=== PATIENT | female | born 1955 | race Asian ===

== ENCOUNTER 2024-12-22 15:06 | Outpatient (AMB) | payer MEDICARE, SELFPAY ==
--- OUTSIDE RECORDS SUMMARY | 2024-12-19 10:15 | XMS_ITS | Encounter Summary ---
Author Organization [facility] Address [address] [place] [address] Care Team Providers Care Pit Furnace Melter Name Role Phone Jose Eduardo Telles MD Primary Care Provider [phone] Reason for Referral * Imaging (Routine) - Authorized Specialty Diagnoses / Procedures Referred By Contac t Referred To Contact Radiology Diagnoses History of invasive breast cancer Age-related osteoporosis without current pathological fracture Procedures BD Bone Density DXA Axial Skeleton Zara Swanson MD [address] [place] [address] Phone: tel: fax: [facility] Referral ID Status Reason Start Date Expiration Date V isits Requested Visits Authorized [id number] Authorized 12/19/2024 12/19/2025 1 1 Reason for Visit * Reason Comments Follow-up Encounter Details Date Type Department Care Team (Late st Contact Info) Description 12/19/2024 10:15 AM EDT Office Visit [facility] Hematology Oncology [address] [place] [phone] Zara Swanson MD [address] [place] [address] History of invasive breast cancer (Primary Dx); Age-related osteoporosis without current pathological fracture Social History Tobacco Use Types Packs/Day Years Used Date Smoking Tobacco: Never Smokeless Tobacco: Never Alcohol Use Standard Drinks/Week Comments Not Currently 0 (1 standard drink = 0.6 oz pur e alcohol) Comments Unknown Sex and Gender Information Value Date Recorded Sex Assigned at Not on file Legal Sex Female 10:47 AM EST Gender Identity Not on file Sexual Orientation Not on file documented as of this encounter Last Filed Vital Signs Vital Sign Reading Time Taken Comments Blood Pressure 111/64 12/19/2024 10:26 AM EDT Pulse 61 12/19/2024 10:26 AM EDT Temperature 36.6 C (97.9 F) 12/19/2024 10:26 AM EDT Respiratory Rate - - Oxygen Saturation 100% 12/19/2024 10:26 AM EDT Inhaled Oxygen Concentration - - Weight 66.7 kg (147 lb) 12/19/2024 10:26 AM EDT Height - - Body Mass Index 23.73 10/04/2024 2:58 PM EDT documented in this encounter Progress Notes * Zara Swanson MD - 12/19/2024 10:15 AM EDT ONC CANCER FOLLOW UP CHIEF COMPLAINT: Follow-up IDENTIFIER:Yobany Morrow is a 69 y.o. female. HPI: 69-year-old woman, who diagnosed in 2021 with grade 2 invasive ductal carcinoma of right breast, patient had T1c N0 hormone receptor positive disease, patient after lumpectomy had adjuvant radiation then started on anastrozole, patient baseline bone density consistent with osteoporosis, patient apparently has been taking vitamin D as well as calcium ROS: No significant anorexia or weight loss Patient noticed some fatigue lately Patient noticed pelvic joint pain and sometimes stiffness of the hand Patient denies any chest pain chest pressure or shortness of breath Patient denies any significant GI symptoms PAST MEDICAL HISTORY: Patient Active Problem List Diagnosis Hyperlipidemia Chest heaviness Retraction of skin of breast Breast pain 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 Rinaldi, cardiology at [facility], try occasion beta marielena History of lumpectomy 10/08/2014 DX:History of lumpectomy; COMMENT: Left/ fibroid per transfer note/ no final path report seen in records Lipoma 11/13/2015 DX:Lipoma; COMMENT: Right knee, right ankle Microscopic hematuria 10/04/2014 DX:Microscopic hematuria; COMMENT: Negative cystoscopy 11/07 Dr Cruz Multinodular goiter 10/04/2014 DX:Multinodular goiter UTI (lower urinary tract infection) 11/06/2014 DX:UTI (lower urinary tract infection); COMMENT: Pyelonephritis, multiresistant organism SOCIAL HISTORY: Social History Tobacco Use Smoking status: Never Smokeless tobacco: Never Substance Use Topics Alcohol use: Not Currently FAMILY HISTORY: Family History Problem Relation Name Age of Onset Lung cancer Maternal Grandmother smoker, dignosed and at age 64 Prostate cancer Paternal Grandfather Other (Other: FUO for 20 years) Father Other (Other: esophageal Ca at age 75) Maternal Grandfather Lung cancer Uncle non smoker, mathernal, at age 69 Family Status Relation Name Status MGM (Not Specified) PGF (Not Specified) Father (Not Specified) MGF (Not Specified) Uncle (Not Specified) No partnership data on file Current Outpatient Medications: anastrozole (ARIMIDEX) 1 mg, TAKE 1 TABLET BY MOUTH EVERY DAY, Disp: 90 tablet, Rfl: 3 calcium carbonate-cholecalciferol 500 mg-10 mcg (400 unit) per chewable tablet, Chew 1 tablet 1 (one) time each day., Disp: , Rfl: ezetimibe (ZETIA) 10 mg tablet, Take 1 tablet (10 mg total) by mouth 1 (one) time each day., Disp: 30 each, Rfl: 11 multivitamin tablet, Take 1 tablet by mouth 1 (one) time each day., Disp: , Rfl: Allergies Allergen Reactions Latex Penicillins Reaction not mentioned PHYSICAL EXAM: Visit Vitals BP 111/64 (BP Location: Left arm, Patient Position: Sitting, BP Cuff Size: Adult) Pulse 61 Temp 36.6 ??C (97.9 ??F) (Temporal) Wt 66.7 kg (147 lb) SpO2 100% BMI 23.73 kg/m?? Smoking Status Never BSA 1.75 m?? ECOG 0 APPEARANCE: Alert and in no acute distress EYES: nonicteric sclera pink conjunctiva ORAL CAVITY: No erythema or exudates NECK: Neck supple, no significant adenopathy, HEART: normal S1 and S2 LUNG: clear to auscultation bilaterally LYMPH NODES: No palpable superficial adenopathy ABDOMEN: soft, nontender and no organomegaly appreciated EXTREMITIES: No edema erythema or tenderness IMPRESSION: 1. History of invasive breast cancer 2. Osteoporosis 69-year-old woman, who had T1c N0 hormone positive invasive carcinoma of right breast, patient had lumpectomy followed by adjuvant radiation then started on anastrozole because of Oncotype DX testing showed low recurrence score, patient has been on anastrozole, tolerating well but baseline bone density showed osteoporosis, I told patient I will repeat bone density next month and see her back in few months, if there is worsening of bone density we will /should consider switching her from aromatase inhibitor, explained patient in detail about potential risk benefit of aromatase inhibitor PLAN: Continue anastrozole for now Bone density next month I will see her back in few months Zara Swanson MD documented in this encounter Plan of Treatment Upcoming Encounters Date Type Department Care Team (Late st Contact Info) Description 01/19/2025 9:30 AM EDT Appointment [facility] Bone Density [address] [place] [phone] 02/06/2025 2:30 PM EST Office Visit [facility] [address] [facility] [address] [place] [address] José Antonio Morrow MD [address] [place] [address] [place] [address] 03/07/2025 11:00 AM EST Office Visit Adult Medicine [address] [phone] Jose Eduardo Telles MD [address] [place] [phone] 04/04/2025 1:30 PM EST Office Visit [facility] [address] [place] [phone] Macy Akers MD [address] [place] [phone] 05/21/2025 11:00 AM EST Office Visit [facility] Hematology Oncology [address] [place] [address] Zara Swanson MD [address] [place] [address] Scheduled Orders Name Type Priority Associated Diagnoses Orde r Schedule BD Bone Density DXA Axial Skeleton Imaging Routine History of invasive breast cancer Age-related osteoporosis without current pathological fracture Expected: 01/18/2025, Expires: 12/19/2025 documented as of this encounter Visit Diagnoses Diagnosis History of invasive breast cancer- Primary Age-related osteoporosis without current pathological fracture documented in this encounter Discontinued Medications Medication Sig Discontinue Reason Start Date End Da te alendronate (FOSAMAX) 70 mg tablet TAKE 1 TABLET (70 MG TOTAL) BY MOUTH EVERY 7 DAYS. TAKE WITH WATER ON EMPTY STOMACH/NOTHING BY MOUTH AND DO NOT LIE DOWN FOR NEXT 30 MINUTES 02/22/2024 12/19/2024 documented as of this encounter Additional Health Concerns Assessment Noted Time PHQ-9 Depression Total Score: 0 08/11/19 25 8:25 AM EDT documented as of this encounter Care Teams Pit Furnace Melter Relationship Specialty Start Date End Date Jose Eduardo Telles MD [address] [place] [id number] PCP - General Internal Medicine 07/04/14 documented as of this encounter
--- NOTE | 2024-12-22 15:16 | HO.NEPHOV ---
Vital Signs 12/22/24 15:20 Height 5 ft 5 in Weight 147 lb 2 oz BMI 24.5 BP 90/50 L Blood Pressure Location Lt brachial Position Sitting Pulse 73 Pulse Source Pulse Oximeter Pulse Oximetry (%) 97 Oxygen Delivery Method Room Air Intake Visit Reasons: Self Referral-Conf Grades 9 12 Tutor Required: No Accompanied by: Spouse Allergies latex Allergy (Verified 12/20/24 14:36) Unknown Penicillins Allergy (Verified 12/20/24 14:36) Unknown HPI Comments Details: I had the privilege of seeing Mrs Morrow in consultation for edema. She is 69 years of age and has been in good health but has been having edema for a few years intermittently. She has no CAD and has no H/O CHF. She is not known to have valvular disease, liver disease, renal dysfunction, proteinuria. She has H/O breast cancer and has been on anastrazole. She claims that her edema predates breast cancer. She denies excess sodium in the diet. She denies chest pain , SOB, PND, orthopnea, abdominal distension or increase in abdominal girth. She denies taking excess NSAID's. 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 Breast pain Retraction of skin of breast Surgical History (Updated 12/22/24 @ 15:18 by Brooke Monteiro MA) History of appendectomy H/O breast surgery Family History (Updated 12/22/24 @ 15:17 by Brooke Monteiro MA) Mother Stroke Social History (Updated 12/22/24 @ 15:17 by Brooke Monteiro MA) Alcohol intake: never Patient Tobacco Use Status: Never used Tobacco Review of Systems Const All systems reviewed & are unremarkable except as noted in HPI and below Physical Exam Vital Signs: Last Vital Signs Pulse 73 12/22/24 15:20 BP 90/50 L 12/22/24 15:20 Pulse Ox 97 12/22/24 15:20 Oxygen Delivery Method Room Air 12/22/24 15:20 BMI result Body Mass Index 24.5 Const General: comfortable and no acute distress Orientation/consciousness: patient oriented x3 HEENT Head: Yes normocephalic Mouth: Normal oral and palatal mucosa present Eyes EOM: EOMs intact bilaterally Neck Neck: Yes supple Resp Auscultation: clear to auscultation bilaterally Cardio Jugular venous distension: no JVD Rate: regular rate GI Palpation (GI): Soft to palpation Auscultation: normal bowel sounds General: Yes no CVA tenderness Back/Spine/Pelvis Back: no CVA tenderness Skin General skin exam: no rashes or lesions noted Neuro General: patient oriented x3 and moves all extremities Extrem Other: B/L varicose vein Assessment & Plan Assessment & Plan (1) Edema: Code(s): R60.9 - Edema, unspecified Category: Medical Qualifiers: Edema type: localized Qualified Code(s): R60.0 - Localized edema Plan Probably due to varicose vein while taking anastrazole. She has no H/O HF, liver disease, renal disease or proteinuria. I have ordered blood work including Pro BNP and urine studies. She may need ECHO. I encouraged her to keep low sodium diet and wear FIDELIA stockings. If all work up is negative, she needs to see surgeon for taking care of her varicose veins. There is no indication for any diuretics now. All the possibilites have been discussed with her and her . All questions were answered and F/U was given. Further management is pending evolving data Orders: Orders NT Pro B Type Natriuretic Pept Today R60.9 - Edema, unspecified Alanine Aminotransferase Today R60.9 - Edema, unspecified Aspartate Amino Transferase Today R60.9 - Edema, unspecified Creatinine Today R60.9 - Edema, unspecified Electrolytes Today R60.9 - Edema, unspecified Albumin Level Today R60.9 - Edema, unspecified Protein Creatinine Ratio, Ur Today R60.9 - Edema, unspecified Blood Urea Nitrogen Today R60.9 - Edema, unspecified Coding Level of Care Code New Pt Level 4 (31205) Diagnoses Localized edema R60.0 Edema type: localized
[2024-12-22 15:20] VITALS: BP 90/50; PULSE 73; O2SAT 97; BMI 24.5
--- OUTSIDE RECORDS SUMMARY | 2024-12-22 15:42 | XMS_ITS | Clinical Summary ---
Author Organization [facility] Address [address] [id number] Care Team Providers Care Vacuum Cleaner Assembler Name Role Phone Jose Eduardo Telles MD Primary Care Provider [phone] Medications Medication Sig Dispensed Refills Start Date End Date Status pravastatin (PRAVACHOL) tablet 20 mg Take 1 tablet (20 mg total) by mouth daily. 0 Active alendronate (FOSAMAX) tablet 70 mg Take 1 tablet (70 mg total) by mouth every 7 days. Take with water on empty stomach/Nothing by mouth and do not lie down for next 30 minutes 4 tablet 12 01/11/2023 Active anastrozole (ARIMIDEX) 1 MG tablet TAKE 1 TABLET BY MOUTH EVERY DAY 90 tablet 3 04/12/2023 Active exemestane (AROMASIN) 25 MG tabletIndications:Inv asive ductal carcinoma of right breast (HCC) Take 1 tablet (25 mg total) by mouth daily 90 tablet 2 08/20/2023 Active Active Problems No known active problems Social History Tobacco Use Types Packs/Day Years Used Date Smoking Tobacco: Never Smokeless Tobacco: Never Tobacco Cessation:Counseling Given: Not Answered Alcohol Use Standard Drinks/Week Comments Never 0 (1 standard drink = 0.6 oz pur e alcohol) Sex and Gender Information Value Date Recorded Sex Assigned at Not on file Gender Identity Not on file Sexual Orientation Not on file Job Start Date Occupation Industry Not on file Not on file Not on file Last Filed Vital Signs Vital Sign Reading Time Taken Comments Blood Pressure 147/84 08/09/2023 9:25 AM EDT Pulse 80 08/09/2023 9:25 AM EDT Temperature 36.6 C (97.8 F) 08/09/2023 9:25 AM EDT Respiratory Rate - - Oxygen Saturation 100% 08/09/2023 9:25 AM EDT Inhaled Oxygen Concentration - - Weight 62.6 kg (138 lb) 08/09/2023 9:25 AM EDT Height 165.1 cm (5' 5 ) 08/09/2023 9:25 AM EDT Body Mass Index 22.96 08/09/2023 9:25 AM EDT Plan of Treatment Health Maintenance Due Date Last Done Comments Hepatitis C Screening 1954 Depression Screening 1966 Preventative Health Evaluation 1972 Colon Cancer Screening (Colonoscopy) 1999 Breast Cancer Screening (Mammogram) 2004 Fall Risk Assessment 2019 Osteoporosis Screening (DEXA Scan) 2019 Shingrix-Zoster Vaccine (2 of 2) 02/10/2023 12/16/2022 COVID-19 Vaccine ( season) 2024 03/31/2022, 08/13/2021, 01/15/2021, Additional history exists Influenza Vaccine (#1) 2024 , 01/25/2020, 01/01/2017 DTap / Tdap / Td (2 - Td or Tdap) 11/12/2025 11/13/2015 RSV Adult > 60+ Yrs or (1 - 1-dose 75+ series) 2029 Pneumococcal Vaccine Completed 05/27/2022 Hepatitis B Vaccines Aged Out No long er eligible based on patient's age to complete this topic RSV Ped < 20 months Aged Out No longe r eligible based on patient's age to complete this topic Care Teams Vacuum Cleaner Assembler Relationship Specialty Start Date End Date Jose Eduardo Telles MD PCP - General Internal Medicine 03/24/22
--- OUTSIDE RECORDS SUMMARY | 2024-12-22 15:42 | XMS_ITS ---
Author Name [facility] Organization Unknown Care Team Organization Name Specialty Phone Email Start Date End Da te [facility] 11/15/2024 [facility] 02/03/2022 11/15/2023
--- OUTSIDE RECORDS SUMMARY | 2024-12-22 15:42 | XMS_ITS | Clinical Summary ---
Author Organization [facility] Address [address] [place] [address] Phone Care Team Providers Care Welfare Manager Name Role Phone Jose Eduardo Telles MD Primary Care Provider [phone] Allergies Active Allergy Reactions Criticality Noted Date Comments Latex 03/18/2022 Penicillins 10/04/2014 Reaction not mentioned Medications calcium carbonate-chol ecalciferol 500 mg-10 mcg (400 unit) per chewable tablet Chew 1 tablet 1 (one) time each day. Active anastrozole (ARIMIDEX) 1 mg TAKE 1 TABLET BY MOUTH EVERY DAY 90 tablet 3 04/12/19 25 Active multivitamin tablet Take 1 tablet by mouth 1 (one) time each day. Active ezetimibe (ZETIA) 10 mg tablet Take 1 tablet (10 mg total) by mouth 1 (one) time each day. 30 each 12/02/19 25 026 Active alendronate (FOSAMAX) 70 mg tablet TAKE 1 TABLET (70 MG TOTAL) BY MOUTH EVERY 7 DAYS. TAKE WITH WATER ON EMPTY STOMACH/NOT LYNN BY MOUTH AND DO NOT LIE DOWN FOR NEXT 30 MINUTES 12 tablet 4 02/22/20 24 025 Discontinued ezetimibe (ZETIA) 10 mg tablet Take 1 tablet (10 mg total) by mouth 1 (one) time each day. 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 Will repeat lipid profile in a few months to make sure the treatment effect sustains. Will check AST and ALT at same time. Orders: Lipid panel with reflex to direct LDL; Future Hepatic function panel; Future Assessment & Plan (04/04/2024 12:37 PM EST): Could not tolerate statins unfortunately due to elevated liver enzyme. Has started Zetia and will repeat liver function and lipid profile in a month. We had a discussion about PCSK9 inhibitor and she is more open about it. Chest heaviness 04/04/2024 Assessment & Plan (06/23/2024 12:26 PM EDT): She had nonobstructive CAD and stress echo was reassuring. Assessment & Plan (04/04/2024 12:43 PM EST): Coronary artery CTA in August 2022 revealed 40% of LAD plaque. Her symptoms are probably stress related. Will schedule a stress echo to assess wall motion and also diastolic parameter post exercise. Will assess mitral inflow and PA systolic pressure before and after exercise with stress echo. CAD (coronary artery disease) 09/24/2023 Overview (08/10/2024): Last Assessment & Plan: With nonobstructive lesions in LAD. We did talk about possible PCSK9 inhibitor and will have a further discussion. Allergic rhinitis 08/20/2023 Bilateral tinnitus 08/20/2023 Sensorineural hearing loss (SNHL) of both ears 0 08/20/2023 Abnormal liver function test 01/01/2022 Osteopenia 01/01/2022 Epigastric pain 11/12/2021 Overview (08/10/2024): Last Assessment & Plan: There is no evidence of hemodynamic significant coronary artery disease. We will continue primary prevention. Fatty liver 11/12/2021 Gastric intestinal metaplasia 11/12/2021 Overview (08/10/2024): EGD every 3 yrs next one due in 2023 Frequent PVCs 11/13/2015 Overview (08/10/2024): Rikki on report, follows with Dr. Rinaldi, cardiology at [facility], try occasion beta marielena Lipoma 11/13/2015 Overview (08/10/2024): Right knee, right ankle, right flank (largest) Lower urinary tract infectious disease 5 Overview (08/10/2024): Pyelonephritis, multiresistant organism IMO update Anemia 10/04/2014 Overview (08/10/2024): GB electrophoresis WNL 2007 Iron study WNL 2012 Microscopic hematuria 10/04/2014 Overview (08/10/2024): Negative cystoscopy 11/07 Dr Cruz Multinodular goiter 10/04/2014 Encounters Date Type Department Care Team Description 12/21/2024 Telephone Adult Medicine [address] [phone] Jose Eduardo Telles MD 12/19/2024 10:15 AM EDT Office Visit [facility] Hematology Oncology [address] [place] [address] Zara Ferrer MD History of invasive breast cancer (Primary Dx); Age-related osteoporosis without current pathological fracture 10/31/2024 Lab Requisition [facility] - Main Lab [address] [facility] [place] [address] Jackson Bacon MD Encounter for gynecological examination (general) (routine) without abnormal findings 10/26/2024 1:26 PM EDT - 10/26/2024 11:59 PM EDT Hospital Encounter [facility] Ultrasound [address] [place] [address] Multinodular goiter; Travel advice encounter Discharge Disposition: Home or Self Care 10/04/2024 3:00 PM EDT Office Visit Adult Medicine [address] [phone] Jose Eduardo Telles MD Travel advice encounter (Primary Dx); Coronary artery disease involving barrow coronary artery of barrow heart without angina pectoris; Multinodular goiter; Fatty liver; Dyslipidemia from Last 3 Months Immunizations Name Administration Dates Next Due Hep B, Unspecified 12/06/2012 Influenza Quadravalent, 0.5m l (Fluad) 65yo and older 01/22/2021 Influenza Quadravalent, MDCK , 0.5ml, with preservative (Flucelvax) 6mo and older 01/01/2017 Influenza trivalent, 0.5mL ( Fluad) 65yo and older 01/26/2024,12/31/2021,01/25/2020 Influenza, Unspecified 12/16/2022,01/22/2021, [place]camp SARS-CoV-2 COVID-19, mRNA, LNP-S, preservative free 03/31/2022,01/15/2021 Pneumococcal conjugate 20 va lent (Prevnar 20, PCV 20) 2mo and older 05/27/2022 Tdap Tetanus diptheria acell ular pertussis (Boostrix; Adacel) 7yo and older 11/13/2015 Zoster Live 11/13/2015 Zoster recombinant (Shingrix ) 19yo and older 12/16/2022 Surgical History Surgery Date Site/Laterality Comments OTHER SURGICAL HISTORY 10/05/11/ 10/05/12 PROCEDURE: OUTSIDE PAP SMEAR; COMMENT: 10/20/13 OTHER SURGICAL HISTORY 10/18/2012 PROCEDURE: MAMMOGRAM BREAST LUMPECTOMY 03/29/2001 PROCEDURE: HISTORICAL BREAST LUMPECTOMY APPENDECTOMY PROCEDURE: HISTORICAL APPENDECTOMY COLONOSCOPY 05/28/2006 PROCEDURE: HISTORICAL COLONOSCOPY COLONOSCOPY 07/15/2016 PROCEDURE: HISTORICAL COLONOSCOPY; COMMENT: Dr. Prashanth amaro. Repeat 10 years. ESOPHAGOGASTRODUODENOSCOPY 01/09/2021 PROCEDURE: NE EGD TRANSORAL BIOPSY SINGLE/MULTIPLE; COMMENT: negative, biopsy negative for celiac disease or H. pylori infection Medical History Medical History Date Comments Multinodular goiter 10/04/2014 DX:Multinodu lar goiter Microscopic hematuria 10/04/2014 DX:Microsc opic hematuria; COMMENT: Negative cystoscopy 11/07 Dr Cruz Anemia 10/04/2014 DX:Anemia; COMME NT: GB electrophoresis WNL 2007 Iron study WNL 2012 History of lumpectomy 10/08/2014 DX:History of lumpectomy; COMMENT: Left/ fibroid per transfer note/ no final path report seen in records UTI (lower urinary tract infection) 11/06/2014 DX:UTI (lower urinary tract infection); COMMENT: Pyelonephritis, multiresistant organism Frequent PVCs 11/13/2015 DX:Frequent PVCs ; COMMENT: Bigeminy on report, follows with Dr. Rinaldi, cardiology at [facility], try occasion beta marielena Lipoma 11/13/2015 DX:Lipoma; COMME NT: Right knee, right ankle Family History Medical History Relation Name Comments Other: FUO for 20 years Father Other: esophageal Ca at age 75 Maternal Grandfather Lung cancer Maternal Grandmother smoker, dignosed and at age 64 Prostate cancer Paternal Grandfather Lung cancer Uncle non smoker, mat hernal, at age 69 Relation Name Status Comments Father Maternal Grandfather Maternal Grandmother Paternal Grandfather Uncle Social History Tobacco Use Types Packs/Day Years Used Date Smoking Tobacco: Never Smokeless Tobacco: Never Tobacco Cessation:Counseling Given: Not Answered Alcohol Use Standard Drinks/Week Comments Not Currently 0 (1 standard drink = 0.6 oz pur e alcohol) Comments Unknown Sex and Gender Information Value Date Recorded Sex Assigned at Not on file Legal Sex Female 10:47 AM EST Gender Identity Not on file Sexual Orientation Not on file Obstetrics History Last Filed Vital Signs Vital Sign Reading Time Taken Comments Blood Pressure 111/64 12/19/2024 10:26 AM EDT Pulse 61 12/19/2024 10:26 AM EDT Temperature 36.6 C (97.9 F) 12/19/2024 10:26 AM EDT Respiratory Rate 20 10/04/2024 2:58 PM EDT Oxygen Saturation 100% 12/19/2024 10:26 AM EDT Inhaled Oxygen Concentration - - Weight 66.7 kg (147 lb) 12/19/2024 10:26 AM EDT Height 167.6 cm (5' 6 ) 10/04/2024 2:58 PM EDT Body Mass Index 23.73 10/04/2024 2:58 PM EDT Plan of Treatment Upcoming Encounters Date Type Department Care Team (Late st Contact Info) Description 01/19/2025 9:30 AM EDT Appointment [facility] Bone Density [address] [place] [phone] 02/06/2025 2:30 PM EST Office Visit [facility] [address] [facility] [address] [place] [phone] José Antonio Morrow MD [address] [place] [address] [place] [address] 03/07/2025 11:00 AM EST Office Visit Adult Medicine [facility] [address] [place] [address] Jose Eduardo Telles MD [address] [place] [address] 04/04/2025 1:30 PM EST Office Visit Breast Care [facility] [address] [place] [address] Macy Akers MD [address] [place] [phone] 05/21/2025 11:00 AM EST Office Visit [facility] Hematology Oncology [address] [place] [address] Zara Ferrer MD [address] [place] [address] Health Maintenance Due Date Last Done Comments Hepatitis B Vaccines (2 of 3 - 19+ 3-dose series) 01/03/2013 12/06/2012 RSV Immunization Adult Patients (1 - Risk 60-74 years 1-dose series) 2014 Colorectal Cancer Screening: Colonoscopy 03/02/2022 Falls Risk Assessment 03/02/2022 Hepatitis C Screening 03/02/2022 Medicare Annual Wellness Visit 03/02/2022 Social Influencers of Health Screening 03/02/2022 Zoster Vaccines (2 of 2) 02/10/2023 12/16/2022, 10/27 COVID-19 Vaccine (7 - Pfizer risk season) 2024 01/26/2024, 03/31/2022, 08/13/2021, Additional history exists Influenza Vaccine (#1) 2024 , 12/16/2022, 12/31/2021, Additional history exists Hypertension/CHF/CAD Annual BMP Blood Test 07/04/2025 07/04/2024 Breast Cancer Screening 07/22/2025 07/23/2023 DTaP,Tdap,and Td Vaccines (2 - Td or Tdap) 11/12/2025 11/13/2015 Cholesterol Screening (Lipid Panel) 12/01/2029 12/01/2024, 07/04/2024, 06/02/2024, Additional history exists Osteoporosis Screening (Bone Density Screening) 08/27/2032 08/27/2022 Pneumococcal Vaccine: 50+ Years Completed 05/27/2022 Depression Screening Completed 08/10/2024 HIB Vaccines Aged Out No longer eligi ble based on patient's age to complete this topic HPV Vaccines Aged Out No longer eligi ble based on patient's age to complete this topic Hepatitis A Vaccines Aged Out No long er eligible based on patient's age to complete this topic IPV Vaccines Aged Out No longer eligi ble based on patient's age to complete this topic MMR Vaccines Aged Out No longer eligi ble based on patient's age to complete this topic Meningococcal ACWY Vaccine Aged Out N o longer eligible based on patient's age to complete this topic Meningococcal B Vaccine Aged Out No l onger eligible based on patient's age to complete this topic RSV Immunization Patients Under 20 months Aged Out No longer eligible based on patient's age to complete this topic Varicella Vaccines Aged Out No longer eligible based on patient's age to complete this topic Procedures Procedure Name Priority Date/Time Associated Diagnosis Comments LIPID PANEL WITH REFLEX TO DIRECT LDL Routine 12/01/2024 10:38 AM EDT Abnormal liver function test Other hyperlipidemia ASPARTATE AMINOTRANSFERASE Routine 12/01/2024 10:38 AM EDT Abnormal liver function test Other hyperlipidemia ALANINE AMINOTRANSFERASE Routine 12/01/2024 10:38 AM EDT Abnormal liver function test Other hyperlipidemia PAP SMEAR Routine 10/30/2024 12:00 AM EDT Encounter for gynecological examination (general) (routine) without abnormal findings US HEAD NECK SOFT TISSUE Routine 10/26/2024 1:52 PM EDT Multinodular goiter Travel advice encounter COMPREHENSIVE METABOLIC PANEL Routine 07/04/2024 11:13 AM EDT Bilateral leg edema LON DEXA AXIAL SKELETON Routine 08/28/19 23 3:07 PM EDT Age-related osteoporosis without current pathological fracture from Last 3 Months or Most Recently Relevant to Health Maintenance Results * (ABNORMAL) Lipid panel with reflex to direct LDL (12/01/2024 10:38 AM EDT) Cholesterol 180 0 - 200 mg/dL LAB CHEMISTRY METHOD 12/01/2024 8:44 PM EDT [facility] Triglycerides 57 0 - 150 mg/dL LAB CHEMISTRY METHOD 12/01/2024 8:44 PM [facility] HDL 63 >=40 mg/dL LAB CHEMISTRY METHOD 12/01/2024 8:44 PM [facility] LDL Calculated 106(H) 0 - 100 mg/dL LAB CHEMISTRY METHOD 12/01/2024 8:44 PM [facility] Comment:Estimated LDL Calcul ated using equation: Total cholesterol - HDL cholesterol - (Triglycerides/5) VLDL Cholesterol Tee 11.4 mg/dL LAB CHEMISTRY METHOD 12/01/2024 8:44 PM T [facility] Non HDL Chol. (LDL+VLDL) 117 <145 mg/dL LAB CHEMISTRY METHOD 12/01/2024 8:44 PM [facility] Chol/HDL Ratio 2.9 0.0 - 4.4 LAB CHEMISTRY METHOD 12/01/2024 8:44 PM EDT [facility] Blood Venous blood specimen / Unknown Venipuncture / Unknown 12/01/2024 10:38 AM EDT 12/01/2024 10:38 AM EDT us José Antonio Morrow MD LAB BLOOD ORDERABLES Final Resul t Performing Organization Address [facility]/ZIP Co de Phone Number [facility] [address] [place] [address], [place] [phone] * Alanine aminotransferase (12/01/2024 10:38 AM EDT) ALT (SGPT) 24 10 - 60 unit/L LAB CHEMISTRY METHOD 12/01/2024 8:44 PM EDT [facility] Blood Venous blood specimen / Unknown Venipuncture / Unknown 12/01/2024 10:38 AM EDT 12/01/2024 10:38 AM EDT us José Antonio Morrow MD LAB BLOOD ORDERABLES Final Resul t Performing Organization Address [facility] Co de Phone Number [facility] [address] [place] [address], [place] [phone] * Aspartate aminotransferase (12/01/2024 10:38 AM EDT) AST (SGOT) 23 10 - 42 unit/L LAB CHEMISTRY METHOD 12/01/2024 8:44 PM EDT [facility] Blood Venous blood specimen / Unknown Venipuncture / Unknown 12/01/2024 10:38 AM EDT 12/01/2024 10:38 AM EDT us José Antonio Mrorow MD LAB BLOOD ORDERABLES Final Resul t Performing Organization Address City/[facility]/ZIP Co de Phone Number [facility] [address] [place] [address], [place] [phone] * Pap smear (10/30/2024 12:00 AM EDT) Interpretation Negative for intraepithelial lesion or malignancy 11/02/2024 11:19 AM EDT [facility] General Categorization Negative 11/02/2024 11:19 AM EDT [facility] Other Findings Atrophy 11/02/2024 11:19 AM EDT [facility] Specimen Adequacy Satisfactory for evaluation 11/02/2024 11:19 AM EDT [facility] Pap Methodology Liquid Based Pap Test 11/02/2024 11:19 AM EDT [facility] Disclaimer The Pap test is a screening test which carries an inherent false negative rate. These test results should be correlated with the patient's clinical findings and history. This Pap test was processed using an automated screening system. Technical cytopathology services provided by [facility], at [address] [place] [address] (CLIA # [id number]/Aron Greenwood MD, Integration Aide.) 11/02/2024 11:19 AM EDT [facility] Console Pap Interpretation Reported 11/02/2024 11:19 AM T [facility] Brushing/Spatula Cervix uteri structure / Unknown 10/30/2024 10/31/2024 6:45 AM EDT us Jackson Bacon MD LAB CYTOLOGY ORDERABLES Final Result [facility] [address] [place] [address], * US Head Neck Soft Tissue (10/26/2024 1:52 PM EDT) Anatomical Region Laterality Modality Head and Neck Ultrasound 11/02/2024 11:2 1 AM EDT Addenda Addendum by Ramesh Ballesteros MD on 12/12/2024 2:06 PM EDT Addendum: Prior thyroid ultrasound studies retrieved from outside facility from November 28, 2020 as well as April 14, 2019. Direct comparison demonstrates no significant change in right-sided nodules. The 11 mm TR 3 lower pole solid nodule appears somewhat spongiform and actually measures up to 10 mm upon my own measurement. This previously measured up to 9 mm. On the left side the midpole nodule measures smaller 8 mm down to 6 mm. The 5 mm lower pole colloid nodule was not imaged on the prior study. Also the 11 mm upper pole nodule was partially imaged but not measured or mentioned on the prior reports. This nodule appears cystic and most consistent with a colloid nodule. -------- ADDENDUM -------- Dictated By: Ramesh Ballesteros Dictated Date: 12/12/2024 10:52 ET Assigned Physician: Ramesh Ballesteros Reviewed and Electronically Signed By: Ramesh Ballesteros Signed Date: 12/12/2024 14:06 ET Workstation ID: [id number] Transcribed By: Self Edit Transcribed Date: 12/12/2024 11:31 ET Impressions 11/02/2024 11:38 AM EDT Multiple bilateral thyroid nodules consistent with colloid nodules, subcentimeter spongiform nodules as well as TR 3 solid nodule within the right lower pole measuring up to 11 mm. -------- FINAL REPORT -------- Dictated By: Ramesh Ballesteros Dictated Date: 11/02/2024 11:21 ET Assigned Physician: Ramesh Ballesteros Reviewed and Electronically Signed By: Ramesh Ballesteros Signed Date: 11/02/2024 11:38 ET Workstation ID: [id number] Transcribed By: Self Edit Transcribed Date: 11/02/2024 11:26 ET Narrative 11/02/2024 11:38 AM EDT INDICATION: Thyroid nodules FINDINGS: Ultrasound of the thyroid gland performed. No prior studies available for comparison. Report from study dated November 28, 2020 reviewed. Right lobe measures: 5.5 cm x 1.5 cm x 1.8 cm Left lobe measures: 4.7 cm x 1.3 cm x 1.8 cm Isthmus measures: 2 mm in width. Echogenicity is homogeneous. Vascularity within normal limits. 6 nodules measured on the right side. Upper pole nodule measures 13 mm x 8 mm x 11 mm. Anechoic with peripheral focal echogenicity without shadowing. Well-circumscribed as well as wider than tall. TR 3 Mid pole nodule measures 6 mm x 3 mm x 4 mm and appears spongiform. TR 1 4 nodules are noted within the lower pole. Largest measuring 11 mm x 11 mm x 6 mm and is also mostly cystic with smooth borders as well as wide tall without echogenic foci. TR 1 In the lower pole there is also a solid anechoic nodule measuring 11 mm x 7 mm x 9 mm with smooth border, wider than tall without echogenic foci. TR 3 3 nodules are noted on the left side. Largest in the upper pole measuring 11 mm x 5 mm x 8 mm. Nodule is mostly anechoic with smooth borders and wider than tall without echogenic foci. Other nodules are subcentimeter spongiform isoechoic nodule in the midpole measuring up to 6 mm as well as anechoic colloid nodule lower pole measuring 5 mm. Procedure Note Ramesh Ballesteros MD - 11/02/2024 INDICATION: Thyroid nodules FINDINGS: Ultrasound of the thyroid gland performed. No prior studiesavailable for comparison. Report from study dated November 281reviewed. Right lobe measures: 5.5 cm x 1.5 cm x 1.8 cm Left lobe measures: 4.7 cm x 1.3 cm x 1.8 cm Isthmus measures: 2 mm in width. Echogenicity is homogeneous. Vascularity within normal limits. 6 nodules measured on the right side. Upper pole nodule measures 13 mm x 8 mm x 11 mm. Anechoic with peripheralfocal echogenicity without shadowing. Well-circumscribed as well as widerthan tall. TR 3 Mid pole nodule measures 6 mm x 3 mm x 4 mm and appears spongiform. TR 1 4 nodules are noted within the lower pole. Largest measuring 11 mm x 11 mmx 6 mm and is also mostly cystic with smooth borders as well as wide tallwithout echogenic foci. TR 1 In the lower pole there is also a solid anechoic nodule measuring 11 mm x7 mm x 9 mm with smooth border, wider than tall without echogenic foci. TR3 3 nodules are noted on the left side. Largest in the upper pole [id number] mm x 5 mm x 8 mm. Nodule is mostly anechoic with smooth borders andwider than tall without echogenic foci. Other nodules are subcentimeterspongiform isoechoic nodule in the midpole measuring up to 6 mm as well asanechoic colloid nodule lower pole measuring 5 mm. IMPRESSION: Multiple bilateral thyroid nodules consistent with colloid nodules,subcentimeter spongiform nodules as well as TR 3 solid nodule within theright lower pole measuring up to 11 mm. -------- FINAL REPORT -------- Dictated By: Ramesh Ballesteros Dictated Date: 11/02/2024 11:21 ET Assigned Physician: Ramesh Ballesteros Reviewed and Electronically Signed By: Ramesh Ballesteros Signed Date: 11/02/2024 11:38 ET Workstation ID: [id number] Transcribed By: Self Edit Transcribed Date: 11/02/2024 11:26 ET us Jose Eduardo Telles MD [facility] US PROCEDURES Edited Result - Final * Comprehensive metabolic panel (07/04/2024 11:13 AM EDT) Sodium 142 133 - 145 mmol/L LAB CHEMISTRY METHOD 07/04/2024 4:25 PM [facility] Potassium 3.8 3.5 - 5.5 mmol/L LAB CHEMISTRY METHOD 07/04/2024 4:25 PM [facility] Chloride 108 96 - 110 mmol/L LAB CHEMISTRY METHOD 07/04/2024 4:25 PM [facility] CO2 29 21 - 32 mmol/L LAB CHEMISTRY METHOD 07/04/2024 4:25 PM [facility] Anion Gap 5 3 - 11 LAB CHEMISTRY METHOD 07/04/2024 4:25 PM [facility] Glucose 94 70 - 100 mg/dL LAB CHEMISTRY METHOD 07/04/2024 4:25 PM [facility] BUN 15 5 - 25 mg/dL LAB CHEMISTRY METHOD 07/04/2024 4:25 PM [facility] Creatinine 0.66 0.50 - 1.10 mg/dL LAB CHEMISTRY METHOD 07/04/2024 4:25 PM [facility] eGFR 95 >=60 mL/min/1. 73m2 LAB CHEMISTRY METHOD 07/04/2024 4:25 PM [facility] Comment:Calculation based on the Chronic Kidney Disease Epidemiology Collaboration (CKD-EPI) equation refit without adjustment for race. BUN/Creatinine Ratio 22.7 LAB CHEMISTRY METHOD 07/04/2024 4:25 PM [facility] Calcium 9.1 8.5 - 10.5 mg/dL LAB CHEMISTRY METHOD 07/04/2024 4:25 PM [facility] AST (SGOT) 23 10 - 42 unit/L LAB CHEMISTRY METHOD 07/04/2024 4:25 PM [facility] ALT (SGPT) 24 10 - 60 unit/L LAB CHEMISTRY METHOD 07/04/2024 4:25 PM [facility] Alkaline Phosphatase 72 42 - 121 unit/L LAB CHEMISTRY METHOD 07/04/2024 4:25 PM [facility] Total Protein 7.3 6.0 - 8.0 g/dL LAB CHEMISTRY METHOD 07/04/2024 4:25 PM [facility] Albumin 4.1 3.2 - 5.0 g/dL LAB CHEMISTRY METHOD 07/04/2024 4:25 PM [facility] Total Bilirubin 0.8 0.0 - 1.4 mg/dL LAB CHEMISTRY METHOD 07/04/2024 4:25 PM [facility] Blood Venous blood specimen / Unknown Venipuncture / Unknown 07/04/2024 11:13 AM EDT 07/04/2024 11:13 AM EDT us Jose Eduardo Telles MD LAB BLOOD ORDERABLES Final Resul t [facility] [address] [place] [address], [place] [phone] * LON DEXA AXIAL SKELETON (08/27/2022 3:07 PM EDT) Anatomical Region Laterality Modality Mammography 08/27/2022 9:58 AM EDT Narrative 08/27/2022 3:07 PM EDT [facility] Diagnostic Imaging Department [address] [place] [address] Patient: GABI MORROWGrayson HAYWOOD /Age/Sex: 1955 - 67 - F Unit#: [id number] Location/Status: SPDIMAM/REG CLI Mnemonic/Ordering Site: MAMDEXAAX/SPMAM Ordering Physician: ZARA FERRER MD [facility] [place] Dexa Axial Skeleton - 08/27/221013 History: Low estrogen state due to menopause. Personal history of breast carcinoma. On anastrozole. Findings: Bone densitometry is performed utilizing dual energy x-ray absorptiometry (DXA) in the [facility] unit. The lumbar spine and proximal femora are evaluated in the AP projection. The FRAX questionaire was completed. The results indicate osteoporosis, with a lumbar spine T-score of -3.1. The Z score is -1.2, indicating low bone mineral density for age. The detailed DEXA report will be mailed to the referring physician's office. DualFemur FRAX: 10-year Probability of Fracture: Major Osteoporotic 6.5 percent Hip 1.4 percent. IMPRESSION: Osteoporosis. [id number] Dictating Physician: FIORDALIZA CAMARILLO MD Electronically Signed by: FIORDALIZA CAMARILLO MD Dic Date/Time: 08/27/22 1506 Sign date/Time: 08/27/22 1507 Procedure Note Fiordaliza Camarillo MD - 04/30/2023 [facility] Diagnostic Imaging Department [address] [place], [place] [id number] Patient: YOBANY MORROW YOBANY /Age/Sex: 1955 - 67 - F Unit#: [id number] [facility] Ordering Physician: ZARA FERRER MD Lon Dexa Axial Skeleton - 08/27/22 - 1014 History: Low estrogen state due to menopause. Personal history of breast carcinoma. On anastrozole. Findings: Bone densitometry is performed utilizing dual energy x-ray absorptiometry(DXA) in the [facility] unit. The lumbar spine and proximal femora areevaluated in the AP projection. The FRAX questionaire was completed. The results indicate osteoporosis, with a lumbar spine T-score of -3.1.The Z score is -1.2, indicating low bone mineral density for age. The detailedDEXA report will be mailed to the referring physician's office. DualFemur FRAX: 10-year Probability of Fracture: Major Osteoporotic 6.5percent Hip 1.4 percent. IMPRESSION: Osteoporosis. [id number] Dictating Physician: FIORDALIZA CAMARILLO MD Electronically Signed by: FIORDALIZA CAMARILLO MD Dic Date/Time: 08/27/22 1506 Sign date/Time: 08/27/22 1507 Zara Carley Ferrer MD IMG BI PROCEDURES Final Resu lt from Last 3 Months or Most Recently Relevant to Health Maintenance Insurance MEDICARE [facility] Care Teams Welfare Manager Relationship Specialty Start Date End Date Jose Eduardo Telles MD [address] [place] [address] PCP - General Internal Medicine 07/04/14
--- OUTSIDE RECORDS SUMMARY | 2024-12-22 15:42 | XMS_ITS | Encounter Summary ---
Author Organization [facility] Address [address] [place] [address] Care Team Providers Care Boat Joiner Name Role Phone Jose Eduardo Telles MD Primary Care Provider [phone] Encounter Details Date Type Department Care Team (Latest Contact Info) Description 10/31/2024 Lab Requisition [facility] - Main Lab [address] [facility] [place] [address] Jackson Bacon MD [address] [facility] [address] [place] [phone] Encounter for gynecological examination (general) (routine) without abnormal findings Social History Tobacco Use Types Packs/Day Years [...] on file documented as of this encounter Plan of Treatment Upcoming Encounters Date Type Department Care Team (Late st Contact Info) Description 01/19/2025 9:30 AM EDT Appointment [facility] Bone Density [address] [place] [address] 02/06/2025 2:30 PM EST Office Visit [facility] - [facility] [address] [facility] [address] [place] [address] José Antonio Morrow MD [address] [place] [address] [place] [address] 03/07/2025 11:00 AM EST Office Visit [facility] [place] [address] [place] [address] Jose Eduardo Telles MD [address] [place] [address] 04/04/2025 1:30 PM EST Office Visit Breast Care [facility] [address] [place] [phone] Macy Akers MD [address] [place] [phone] 05/21/2025 11:00 AM EST Office Visit [facility] Hematology Oncology [address] [place] [phone] Zara Swanson MD [address] [place] [address] documented as of this encounter Procedures Procedure Name Priority Date/Time Associated Diagnosis Comments PAP SMEAR Routine 10/30/2024 12:00 AM EDT Encounter for gynecological examination (general) (routine) without abnormal findings documented in this encounter Results * Pap smear (10/30/2024 12:00 AM EDT) Interpretation Negative for intraepithelial lesion or malignancy 11/02/2024 11:19 AM EDT [facility] General Categorization Negative 11/02/2024 11:19 AM EDT [facility] Other Findings Atrophy 11/02/2024 11:19 AM EDT [facility] Specimen Adequacy Satisfactory for evaluation 11/02/2024 11:19 AM [facility] Pap Methodology Liquid Based Pap Test 11/02/2024 11:19 AM EDT [facility] Disclaimer The Pap test is a screening test which carries an inherent false negative rate. These test results should be correlated with the patient's clinical findings and history. This Pap test was processed using an automated screening system. Technical cytopathology services provided by [facility], at [address] [place] [address] (CLIA # [id number]/Aron Greenwood MD, Printing Shop Supervisor.) 11/02/2024 11:19 AM EDT [facility] Console Pap Interpretation Reported 11/02/2024 11:19 AM EDT [facility] Brushing/Spatula Cervix uteri structure / Unknown 10/30/2024 10/31/2024 6:45 AM EDT us Jackson Bacon MD LAB CYTOLOGY ORDERABLES Final Result [facility] [address] [place] [address], documented in this encounter Visit Diagnoses Diagnosis Encounter for gynecological examination (general) (routine) without abnormal findings documented in this encounter Additional Health Concerns Assessment Noted Time PHQ-9 Depression Total Score: 0 08/11/19 25 8:25 AM EDT documented as of this encounter Care Teams Boat Joiner Relationship Specialty Start Date End Date Jose Eduardo Telles MD [address] [place] [address] PCP - General Internal Medicine 07/04/14 documented as of this encounter
--- OUTSIDE RECORDS SUMMARY | 2024-12-22 15:42 | XMS_ITS | Encounter Summary ---
Author Organization [facility] Address [address] [place] [address] Care Team Providers Care Men'S Locker Room Attendant Name Role Phone Jose Eduardo Telles MD Primary Care Provider [phone] Reason for Visit * Reason Onset Date Comments Mammo Order 12/21/2024 Encounter Details Date Type Department Care Team (Late Contact Info) Description 12/21/2024 Telephone Adult Medicine [facility] [address] [place] [phone] Jose Eduardo Telles MD [address] [place], [place] [phone] Social History Tobacco Use Types Packs/Day Years [...] on file documented as of this encounter Progress Notes * Dalila Mishra - 12/21/2024 4:40 PM EDT The mammo diagnostic states follow up exam and it needs to have a different diagnostic code. Pleaseadvise. documented in this encounter Plan of Treatment Upcoming Encounters Date Type Department Care Team (Late st Contact Info) Description 01/19/2025 9:[address] [facility] Bone Density [address] [place] [address] 02/06/2025 2:30 PM EST Office Visit [facility] [address] [facility] [address] [place] [address] José Antonio Morrow MD [facility] [place] [address] 03/07/2025 11:00 AM EST Office Visit Adult Medicine [facility] [address] [place] [address] Jose Eduardo Telles MD [address] [place] [address] 04/04/2025 1:30 PM EST Office Visit Breast Care [facility] [address] [place] [address] Macy Akers MD [address] [place] [phone] 05/21/2025 11:00 AM EST Office Visit [facility] Hematology Oncology [address] [place] [address] Zara Swanson MD [address] [place] [address] documented as of this encounter Visit Diagnoses Not on filedocumented in this encounter Additional Health Concerns Assessment Noted Time PHQ-9 Depression Total Score: 0 08/11/19 25 8:25 AM EDT documented as of this encounter Care Teams Men'S Locker Room Attendant Relationship Specialty Start Date End Date Jose Eduardo Telles MD [address] [place] [address] PCP - General Internal Medicine 07/04/14 documented as of this encounter
== END 2024-12-22 15:51 | disposition home or self-care (01) ==
LOC: HO.HKA 15:06
PROVIDERS: PCP Internal Medicine; Visit Provider Internal Medicine Nephrology
DX: R60.0 Localized edema (principal)
CPT/HCPCS: 99204

== ENCOUNTER → 2024-12-22 15:06 | Outpatient (BNVA) | payer MEDICARE, SELFPAY | PROVIDERS: PCP Internal Medicine; Visit Provider Internal Medicine Nephrology | DX: R60.0 Localized edema (principal) | CPT/HCPCS: 99202 ==

== ENCOUNTER 2025-01-03 11:09 | Outpatient (REF) | payer MEDICARE, SELFPAY ==
[2025-01-03 14:42] LABS: Total Protein Urine Random < 7 mg/dL (<12)
[2025-01-03 18:48] LABS: NT Pro B Type Natriuretic Pept 171.0 pg/mL (<300)
[2025-01-03 19:00] LABS: Alanine Aminotransferase 27 U/L (0-31); Albumin Level 4.6 g/dL (3.5-5.0); Anion Gap 13 (12-20); Aspartate Amino Transferase 31 U/L (5-31); Blood Urea Nitrogen 15 mg/dL (9-16); Carbon Dioxide 26 mmol/L (22-29); Chloride 108 mmol/L (96-108); Estimated Glomerular Filt Rate > 60; Potassium 3.6 mmol/L (3.3-5.1); Sodium 143 mmol/L (135-145)
== END 2025-01-03 11:10 | disposition home or self-care (01) ==
LOC: HO.HKASLDS 11:09
PROVIDERS: PCP Internal Medicine; Visit Provider Internal Medicine Nephrology
DX: R60.9 Edema, unspecified (principal)
CPT/HCPCS: 36415; 80051; 82040; 82565; 82570; 83880; 84156; 84450; 84460; 84520

== ENCOUNTER 2025-01-25 10:42 | Outpatient (AMB) | payer MEDICARE, SELFPAY ==
--- NOTE | 2025-01-25 10:55 | HO.NEPHOV ---
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 She is 69 years of age and has been in good health but has been having edema for a few years intermittently. She has no CAD and has no H/O CHF. She is not known to have valvular disease, liver disease, renal dysfunction, proteinuria. She has H/O breast cancer and has been on anastrazole. She claims that her edema predates breast cancer. She denies excess sodium in the diet. She denies chest pain , SOB, PND, orthopnea, abdominal distension or increase in abdominal girth. She denies taking excess NSAID's. 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 Breast pain Retraction of skin of breast Surgical History History of appendectomy H/O breast surgery Family History Mother Stroke Social History Alcohol intake: never Patient Tobacco Use Status: Never used Tobacco Review of Systems Const All systems reviewed & are unremarkable except as noted in HPI and below Physical Exam Vital Signs: Last Vital Signs Pulse 65 01/25/25 10:57 BP 102/62 01/25/25 10:57 Pulse Ox 98 01/25/25 10:57 Oxygen Delivery Method Room Air 01/25/25 10:57 BMI result Body Mass Index 24.7 Const General: comfortable and no acute distress Orientation/consciousness: patient oriented x3 HEENT Head: Yes normocephalic Mouth: Normal oral and palatal mucosa present Eyes EOM: EOMs intact bilaterally Neck Neck: Yes supple Resp Auscultation: clear to auscultation bilaterally Cardio Jugular venous distension: no JVD Rate: regular rate GI Palpation (GI): Soft to palpation Auscultation: normal bowel sounds General: Yes no CVA tenderness Back/Spine/Pelvis Back: no CVA tenderness Skin General skin exam: no rashes or lesions noted Neuro General: patient oriented x3 and moves all extremities Extrem General: Yes no pedal edema Results Reviewed Nephrology Results: Sodium, (135-145) 143 mmol/L 01/03/25 Potassium, (3.3-5.1) 3.6 mmol/L 01/03/25 Chloride, (96-108) 108 mmol/L 01/03/25 Carbon Dioxide, (22-29) 26 mmol/L 01/03/25 BUN, (9-16) 15 mg/dL 01/03/25 Creatinine, (0.5-1.4) 0.62 mg/dL 01/03/25 Urine Creatinine 41.37 mg/dL 01/03/25 Protein/Creatinin Ratio TNP 01/03/25 Assessment & Plan Assessment & Plan (1) Edema: Code(s): R60.9 - Edema, unspecified Category: Medical Qualifiers: Edema type: localized Qualified Code(s): R60.0 - Localized edema Plan Probably due to varicose vein and anastrazole. She has no H/O HF, liver disease, renal disease or proteinuria. All the blood work including Pro BNP and urine studies and ECHO are normal . I encouraged her to keep low sodium diet and wear FIDELIA stockings. There is no indication for any diuretics now. All the possibilites have been discussed with her and her . All questions were answered and No F/U was given. Coding Level of Care Code Est Pt Level 4 (71946) Diagnoses Localized edema R60.0 Edema type: localized
[2025-01-25 10:57] VITALS: BP 102/62; PULSE 65; O2SAT 98; BMI 24.7
--- OUTSIDE RECORDS SUMMARY | 2025-01-25 13:12 | XMS_ITS | Clinical Summary ---
Author Organization [facility] Address [address] [id number] Care Team Providers Care Pluck Separator Name Role Phone Jose Eduardo Telles MD Primary Care Provider [phone] Medications Medication Sig Dispensed Refills Start Date [...] age to complete this topic Care Teams Pluck Separator Relationship Specialty Start Date End Date Jose Eduardo Telles MD PCP - General Internal Medicine 03/24/22
== END 2025-01-25 11:17 | disposition home or self-care (01) ==
LOC: HO.HKAS 10:43
PROVIDERS: PCP Internal Medicine; Visit Provider Internal Medicine Nephrology
DX: R60.0 Localized edema (principal)
CPT/HCPCS: 99214

== ENCOUNTER → 2025-01-25 10:42 | Outpatient (BNVA) | payer MEDICARE, SELFPAY | PROVIDERS: PCP Internal Medicine; Visit Provider Internal Medicine Nephrology | DX: R60.0 Localized edema (principal) | CPT/HCPCS: 99212 ==